=== PATIENT | male | born 1965 | race Caucasian/White ===

== ENCOUNTER 2017-06-18 00:58 | Emergency (ER) | payer MEDICARE, MEDICAID ==
[~2017-06-18] VITALS: Ht 162.6 cm; Wt 83.5 kg
[2017-06-18] MEDS ORDERED: IBUPROFEN 800 MG TABLET PO ONE (03:15)
[2017-06-18] MEDS ORDERED: BENZONATATE 100 MG CAPSULE PO ONE (03:15)
[2017-06-18] MEDS ORDERED: BENZONATATE 100 MG CAPSULE ONE (03:27)
[2017-06-18] MEDS ORDERED: IBUPROFEN 800 MG TABLET ONE (03:27)
--- NOTE | 2017-06-18 04:15 | NUR ---
Patient discharged to home in stable conditon. Written and verbal after care instructions given. Patient verbalizes understanding of instructions.
== END 2017-06-18 04:17 | disposition home or self-care (01) ==
LOC: ER 01:04
DX: J20.8 Acute bronchitis due to other specified organisms (principal); B96.89 Other specified bacterial agents as the cause of diseases classified elsewhere; M79.651 Pain in right thigh
CPT/HCPCS: 73551; A4663

== ENCOUNTER 2018-08-26 05:06 | Emergency (ER) | payer MEDICARE, OTHER ==
[~2018-08-26] VITALS: Ht 165.1 cm; Wt 81.6 kg
--- NOTE | 2018-08-26 05:20 | NUR ---
Pt ambulates to ER with c/o right earache + cough x 2 days. No fever/chills. No chest pain/sob. No N/V/D. Pt is deaf-mute. Respirations even + unlabored. Appears in no apparent distress.
[2018-08-26] MEDS ORDERED: BENZONATATE 100 MG CAPSULE ONE (05:36)
[2018-08-26] MEDS ORDERED: IBUPROFEN 800 MG TABLET ONE (05:36)
[2018-08-26] MEDS ORDERED: BENZONATATE 100 MG CAPSULE PO ONE (05:45)
[2018-08-26] MEDS ORDERED: IBUPROFEN 800 MG TABLET PO ONE (05:45)
--- NOTE | 2018-08-26 05:47 | NUR ---
Patient discharged to home in stable conditon. Written and verbal after care instructions given. Patient verbalizes understanding of instructions. Pt left ER w stable gait. No acute distress noted. All belongings w pt.
[2018-08-26 05:48] VITALS: BP 116/84
== END 2018-08-26 05:49 | disposition home or self-care (01) ==
LOC: ER 05:07
DX: J20.9 Acute bronchitis, unspecified (principal); H66.91 Otitis media, unspecified, right ear
CPT/HCPCS: A4663

== ENCOUNTER 2019-03-10 08:04 | Emergency (ER) | payer MEDICARE, OTHER ==
[~2019-03-10] VITALS: Ht 162.6 cm; Wt 77.1 kg
--- NOTE | 2019-03-10 08:59 | NUR ---
Patient discharged to home in stable conditon. Written after care instructions given to patient. Patient expressed understanding & compliance of instructions.
== END 2019-03-10 09:01 | disposition home or self-care (01) ==
LOC: ER 08:04
DX: S50.362A Insect bite (nonvenomous) of left elbow, initial encounter (principal); S50.361A Insect bite (nonvenomous) of right elbow, initial encounter; W57.XXXA Bitten or stung by nonvenomous insect and other nonvenomous arthropods, initial encounter; Y93.89 Activity, other specified; Y92.89 Other specified places as the place of occurrence of the external cause; Y99.8 Other external cause status
CPT/HCPCS: A4663

== ENCOUNTER 2019-04-06 07:06 | Emergency (ER) | payer MEDICARE, OTHER ==
[~2019-04-06] VITALS: Ht 167.6 cm; Wt 68.0 kg
--- NOTE | 2019-04-06 07:31 | NUR ---
DR. REYES AT BEDSIDE FOR MSE.
[2019-04-06] MEDS ORDERED: IBUPROFEN 800 MG TABLET PO ONE (07:45)
[2019-04-06] MEDS ORDERED: IBUPROFEN 800 MG TABLET ONE (07:54)
[2019-04-06 08:02] LABS: BASOPHILS # (AUTO) 0.1 K/uL (0.0-8.0); BASOPHILS % (AUTO) 0.8 % (0.0-2.0); EOSINOPHILS # (AUTO) 0.3 K/uL (0.0-0.7); EOSINOPHILS % (AUTO) 3.8 % (0.0-7.0); HEMATOCRIT 41.4 % (36.7-47.1); HEMOGLOBIN 13.5 g/dL (12.5-16.3); LYMPHOCYTES # (AUTO) 2.6 K/uL (20.0-40.0); LYMPHOCYTES % (AUTO) 30.5 % (20.5-51.5); MEAN CORPUSCULAR HEMOGLOBIN 28.1 uug (23.8-33.4); MEAN CORPUSCULAR HGB CONC 33 g/dL (32.5-36.3); MEAN CORPUSCULAR VOLUME 85.9 fL (73.0-96.2); MONOCYTES # (AUTO) 0.9 K/uL (2.0-10.0); MONOCYTES % (AUTO) 10.4 % (0.0-11.0); NEUTROPHILS # (AUTO) 4.6 K/uL (1.8-8.9); NEUTROPHILS % (AUTO) 54.5 % (38.5-71.5); PLATELET COUNT (AUTO) 258 K/uL (152-348); RED BLOOD CELL COUNT(AUTO) 4.82 MIL/uL (4.06-5.63); WHITE BLOOD COUNT (AUTO) 8.4 K/uL (3.6-10.2)
[2019-04-06 08:05] LABS: *BILIRUBIN,URIN NEGATIVE (NEGATIVE); *BLOOD, URINE NEGATIVE (NEGATIVE); *CLARITY,URINE CLEAR (CLEAR); *COLOR,URINE YELLOW (YELLOW); *KETONES,URINE NEGATIVE (NEGATIVE); *UROBILINOGEN,URINE 0.2 E.U./dl (NORMAL); LEUKOCYTE ESTERASE ,URINE NEGATIVE (NEGATIVE); NITRITE, URINE NEGATIVE (NEGATIVE); PH,URINE 5.5 (5.0-8.0); UGLUCOSE NEGATIVE (NEGATIVE)
[2019-04-06 08:06] LABS: POTASSIUM 4.1 mmol/L (3.5-5.1)
[2019-04-06 08:21] LABS: BILIRUBIN,DIRECT 0.1 mg/dL (0.0-0.2); BILIRUBIN,TOTAL 0.2 mg/dL (0.2-1.0); TOTAL PROTEIN, SERUM 7.1 g/dL (6.4-8.2)
--- NOTE | 2019-04-06 09:09 | NUR ---
Patient discharged to home in stable conditon. Written and verbal after care instructions given. Patient verbalizes understanding of instructions. ALL BELONGINGS W/ PT. PT SELF-AMBULATED W/O DIFFICULTY.
[2019-04-06 09:10] VITALS: BP 143/73
== END 2019-04-06 09:17 | disposition home or self-care (01) ==
LOC: ER 07:07
DX: S20.211A Contusion of right front wall of thorax, initial encounter (principal); I70.0 Atherosclerosis of aorta; K76.89 Other specified diseases of liver; K42.9 Umbilical hernia without obstruction or gangrene; R03.0 Elevated blood-pressure reading, without diagnosis of hypertension; X58.XXXA Exposure to other specified factors, initial encounter; Y93.89 Activity, other specified; Y92.89 Other specified places as the place of occurrence of the external cause; Y99.8 Other external cause status
CPT/HCPCS: 36415; 70030-TC; 71045; 83690; 85025; 93005; A4663

== ENCOUNTER 2019-08-04 20:25 | Emergency (ER) | payer MEDICARE, OTHER ==
[~2019-08-04] VITALS: Ht 165.1 cm; Wt 72.6 kg
--- NOTE | 2019-08-04 21:07 | NUR ---
Pt moved from waiting area to bed 2b. Pt is deaf and mute. Pt ambulated in ER with stable gait and c/o generalized abdominal pain with nausea x 3 days after eating shrimp. Safe environment implemented.
[2019-08-04] MEDS ORDERED: ONDANSETRON ODT 4 MG TAB.RAPDIS SL ONE (22:15)
[2019-08-04] MEDS ORDERED: HYDROCODONE/APAP 10-325 MG TABLET PO ONE (22:15)
[2019-08-04] MEDS ORDERED: IV NORMAL SALINE 1000 ML BAG IV ONE (22:15)
[2019-08-04] MEDS ORDERED: HYDROCODONE/APAP 10-325 MG TABLET ONE (22:36)
[2019-08-04] MEDS ORDERED: ONDANSETRON ODT 4 MG TAB.RAPDIS ONE (22:36)
[2019-08-04 22:39] LABS: BASOPHILS # (AUTO) 0.1 K/uL (0.0-8.0); BASOPHILS % (AUTO) 1.1 % (0.0-2.0); EOSINOPHILS # (AUTO) 0.2 K/uL (0.0-0.7); EOSINOPHILS % (AUTO) 2.8 % (0.0-7.0); HEMATOCRIT 42.8 % (36.7-47.1); HEMOGLOBIN 14.3 g/dL (12.5-16.3); LYMPHOCYTES # (AUTO) 2.7 K/uL (20.0-40.0); LYMPHOCYTES % (AUTO) 31.4 % (20.5-51.5); MEAN CORPUSCULAR HEMOGLOBIN 28.1 uug (23.8-33.4); MEAN CORPUSCULAR HGB CONC 33 g/dL (32.5-36.3); MEAN CORPUSCULAR VOLUME 84.4 fL (73.0-96.2); MONOCYTES # (AUTO) 0.7 K/uL (2.0-10.0); MONOCYTES % (AUTO) 7.8 % (0.0-11.0); NEUTROPHILS % (AUTO) 56.9 % (38.5-71.5); PLATELET COUNT (AUTO) 287 K/uL (152-348); RED BLOOD CELL COUNT(AUTO) 5.08 MIL/uL (4.06-5.63); WHITE BLOOD COUNT (AUTO) 8.7 K/uL (3.6-10.2)
[2019-08-04 22:53] LABS: ALANINE AMINOTRANSFERASE 20 U/L (16-63); ALKALINE PHOSPHATASE 88 U/L (50-136); ASPARTATE AMINOTRANSFERASE 19 U/L (15-37); BILIRUBIN,DIRECT < 0.1 mg/dL (0.0-0.2); BILIRUBIN,TOTAL 0.2 mg/dL (0.2-1.0); CARBON DIOXIDE 28 mmol/L (21-32); CHLORIDE 105 mmol/L (98-107); GLUCOSE 100 mg/dL (74-106); LIPASE 321 U/L (73-393); POTASSIUM 4.3 mmol/L (3.5-5.1); TOTAL PROTEIN, SERUM 7.4 g/dL (6.4-8.2); UREA NITROGEN, BLOOD 18 mg/dL (7-18)
--- NOTE | 2019-08-04 23:59 | NUR ---
IV removed. Catheter intact and site benign. Pressure and 4x4 gauze applied to site. No bleeding noted.Patient discharged to home in stable conditon. Written and verbal after care instructions given. Patient verbalizes understanding of instructions.
--- NOTE | 2019-08-05 | NUR ---
Patient wrote and gestured that he understood aftercare instuctions. Patient instructed not to drive.
[2019-08-05 00:07] VITALS: BP 112/84
[2019-08-05 00:23] LABS: *BILIRUBIN,URIN NEGATIVE (NEGATIVE); *BLOOD, URINE NEGATIVE (NEGATIVE); *CLARITY,URINE CLEAR (CLEAR); *COLOR,URINE YELLOW (YELLOW); *KETONES,URINE NEGATIVE (NEGATIVE); *UROBILINOGEN,URINE 0.2 E.U./dl (NORMAL); LEUKOCYTE ESTERASE ,URINE NEGATIVE (NEGATIVE); NITRITE, URINE NEGATIVE (NEGATIVE); UGLUCOSE NEGATIVE (NEGATIVE)
== END 2019-08-05 00:12 | disposition home or self-care (01) ==
LOC: ER 20:25
DX: K42.9 Umbilical hernia without obstruction or gangrene (principal)
CPT/HCPCS: 36415; 83690; 85025; A4663; J7030; Q0162

== ENCOUNTER 2021-03-18 22:07 | Emergency (ER) | payer MEDICARE, OTHER ==
[~2021-03-18] VITALS: Ht 182.9 cm; Wt 77.1 kg
[2021-03-18] MEDS ORDERED: TETRACAINE HCL 0.5% OPHT DROP 2 ML BOTTLE ONE (23:14)
[2021-03-18] MEDS ORDERED: FLUORESCEIN SODIUM 1 MG STRIP ONE (23:15)
[2021-03-18] MEDS ORDERED: FLUORESCEIN SODIUM 1 MG STRIP OP ONE (23:15)
[2021-03-18] MEDS ORDERED: TETRACAINE HCL 0.5% OPHT DROP 2 ML BOTTLE OP ONE (23:15)
--- NOTE | 2021-03-18 23:40 | NUR ---
Dr. Ceron at bedside for eye exam.
--- NOTE | 2021-03-18 23:50 | NUR ---
Patient is deaf and non-verbal. He communicates through reading and writing.
[2021-03-19] MEDS ORDERED: OFLO5DRO3 LEFTEYE (00:23)
[2021-03-19] MEDS ORDERED: OLOP2.5D12 LEFTEYE (00:23)
--- NOTE | 2021-03-19 00:23 | NUR ---
Patient discharged to home in stable condition. Written after care instructions gone over with patient and given for patient to take home. Through written communication Patient stated understanding of instructions. Stressed follow up or return to ER for worsening s/s.
[2021-03-19 00:57] VITALS: BP 129/79
== END 2021-03-19 00:25 | disposition home or self-care (01) ==
LOC: ER 22:11
DX: H10.9 Unspecified conjunctivitis (principal); H91.3 Deaf nonspeaking, not elsewhere classified

== ENCOUNTER 2023-02-08 00:31 | Emergency (ER) | payer MEDICARE, OTHER ==
[~2023-02-08] VITALS: Ht 170.2 cm; Wt 77.1 kg
[~2023-02-08 00:31] MED LIST: OFLO5DRO3 LEFTEYE; OLOP2.5D12 LEFTEYE
[2023-02-08] MEDS ORDERED: GUAIFENESIN/CODEINE 5 ML LIQUID UDC ONE (00:52)
[2023-02-08] MEDS ORDERED: GUAIFENESIN/CODEINE 5 ML LIQUID UDC PO ONE (01:00)
[2023-02-08] MEDS ORDERED: CODE10LI PO (01:22)
[2023-02-08] MEDS ORDERED: PRED20TA PO (01:22)
[2023-02-08] MEDS ORDERED: predniSONE 50 MG TABLET ONE (01:25)
[2023-02-08] MEDS ORDERED: predniSONE 50 MG TABLET PO ONE (01:30)
[2023-02-08 01:31] VITALS: BP 140/91; O2SAT 97
== END 2023-02-08 01:32 | disposition home or self-care (01) ==
LOC: ER 00:45
DX: R05.9 Cough, unspecified (principal); R07.89 Other chest pain; Z79.2 Long term (current) use of antibiotics; Z79.899 Other long term (current) drug therapy
CPT/HCPCS: 99283; 71045; J7512; A4663

== ENCOUNTER 2023-05-23 17:34 | Emergency (ER) | payer MEDICARE, OTHER ==
[~2023-05-23] VITALS: Ht 165.1 cm; Wt 70.3 kg
[~2023-05-23 17:34] MED LIST changes: +CODE10LI PO; +PRED20TA PO
[2023-05-23] MEDS ORDERED: CEPH500C2 PO ×2 (19:35→19:37)
[2023-05-23 20:31] VITALS: BP 121/70; TEMP 98.5; O2SAT 99
== END 2023-05-23 20:31 | disposition home or self-care (01) ==
LOC: ER 17:37
DX: J02.0 Streptococcal pharyngitis (principal); Z79.899 Other long term (current) drug therapy; Z20.822 Contact with and (suspected) exposure to COVID-19
CPT/HCPCS: 86403; A4606; A4663

== ENCOUNTER 2023-08-08 22:34 | Emergency (ER) | payer MEDICARE, OTHER ==
[~2023-08-08] VITALS: Ht 165.1 cm; Wt 70.3 kg
[~2023-08-08 22:34] MED LIST changes: +CEPH500C2 PO
[2023-08-08] MEDS ORDERED: NAPROXEN 500 MG TABLET ONE (23:19)
[2023-08-08] MEDS: NAPROXEN 500 MG TABLET PO ONE (23:23)
[2023-08-09] MEDS ORDERED: NAPR-1009 PO (01:21)
[2023-08-09] MEDS ORDERED: AMOX500T2 PO (01:21)
[2023-08-09 01:25] VITALS: BP 100/63; O2SAT 97
== END 2023-08-09 01:25 | disposition home or self-care (01) ==
LOC: ER 22:37
DX: J02.9 Acute pharyngitis, unspecified (principal); J20.9 Acute bronchitis, unspecified; J06.9 Acute upper respiratory infection, unspecified; R07.89 Other chest pain; H66.93 Otitis media, unspecified, bilateral; Z98.890 Other specified postprocedural states; Z79.899 Other long term (current) drug therapy; Z20.822 Contact with and (suspected) exposure to COVID-19; Z60.2 Problems related to living alone
CPT/HCPCS: 71045; 86403; A4606; A4663

== ENCOUNTER 2023-09-13 18:43 | Emergency (ER) | payer MEDICARE, OTHER ==
[~2023-09-13] VITALS: Ht 165.1 cm; Wt 70.3 kg
[~2023-09-13 18:43] MED LIST changes: +AMOX500T2 PO; +NAPR-1009 PO
[2023-09-13] MEDS ORDERED: PRED50TA PO (18:56)
[2023-09-13] MEDS ORDERED: NAPR-1009 PO (18:56)
[2023-09-13] MEDS ORDERED: AMOX-430 PO (18:56)
[2023-09-13] MEDS ORDERED: predniSONE 50 MG TABLET ONE (19:00)
[2023-09-13] MEDS ORDERED: AMOXICILLIN-CLAVUL 875-125MG TABLET ONE (19:01)
[2023-09-13] MEDS ORDERED: NAPROXEN 500 MG TABLET ONE (19:01)
[2023-09-13] MEDS: NAPROXEN 500 MG TABLET PO ONE (19:05)
[2023-09-13] MEDS: AMOXICILLIN-CLAVUL 875-125MG TABLET PO ONE (19:05)
[2023-09-13] MEDS: predniSONE 50 MG TABLET PO ONE (19:05)
[2023-09-13 19:06] VITALS: BP 134/67; O2SAT 98
== END 2023-09-13 19:06 | disposition home or self-care (01) ==
LOC: ER 18:46
DX: H66.92 Otitis media, unspecified, left ear (principal); J03.90 Acute tonsillitis, unspecified; Z98.890 Other specified postprocedural states; Z79.899 Other long term (current) drug therapy; Z60.2 Problems related to living alone
CPT/HCPCS: 99284; J7512; A4606; A4663

== ENCOUNTER 2024-06-30 05:36 | Emergency (ER) | payer MEDICARE, OTHER ==
[~2024-06-30] VITALS: Ht 162.6 cm; Wt 74.8 kg
[~2024-06-30 05:36] MED LIST changes: +AMOX-430 PO; +PRED50TA PO
[2024-06-30] MEDS ORDERED: AMOX500T2 PO (07:42)
[2024-06-30] MEDS ORDERED: NEOM10DR11 EACH EAR (07:42)
[2024-06-30 07:47] VITALS: BP 111/64; TEMP 97.7; O2SAT 99
== END 2024-06-30 07:47 | disposition home or self-care (01) ==
LOC: ER 05:47
DX: J02.0 Streptococcal pharyngitis (principal); E78.5 Hyperlipidemia, unspecified; Z79.52 Long term (current) use of systemic steroids; Z60.2 Problems related to living alone
CPT/HCPCS: A4606; A4663

== ENCOUNTER 2024-10-16 01:56 | Emergency (ER) | payer MEDICARE, OTHER ==
[~2024-10-16] VITALS: Ht 160 cm; Wt 83.9 kg
[~2024-10-16 01:56] MED LIST changes: +NEOM10DR11 EACH EAR
[2024-10-16] MEDS ORDERED: OLOP2.5D12 OP (02:32)
[2024-10-16] MEDS ORDERED: LORA10TA7 PO (02:33)
[2024-10-16] MEDS ORDERED: TRIA15CR2 TP (02:36)
[2024-10-16] MEDS ORDERED: LORATADINE 10 MG TABLET ONE (02:59)
[2024-10-16] MEDS: LORATADINE 10 MG TABLET PO STA (03:05)
[2024-10-16 03:12] VITALS: BP 114/56; O2SAT 96
== END 2024-10-16 03:12 | disposition home or self-care (01) ==
LOC: ER 02:20
DX: J02.9 Acute pharyngitis, unspecified (principal); L30.8 Other specified dermatitis; H10.13 Acute atopic conjunctivitis, bilateral; Z79.52 Long term (current) use of systemic steroids; Z60.2 Problems related to living alone
CPT/HCPCS: 86403; 87070; A4606; A4663